=== PATIENT | female | born 1945 | race Caucasian/White ===

== ENCOUNTER 2017-10-16 02:03 | Inpatient (IN) | payer MEDICARE, OTHER ==
[~2017-10-16] VITALS: Ht 162.6 cm; Wt 76.7 kg
[2017-10-16] VITALS (7 sets, daily range): BP systolic 88–127; BP diastolic 52–61
[~2017-10-16 02:03] MED LIST: AMLO5TAB2 PO; APIX5TAB PO; ASPI-630 PO; ATOR40TA59 PO; BUDE0.5A3 IH; BYSTOLIC20 MG PO; CARV12.52 PO; DULO60CA6 PO; FOLI1TAB16 PO; FURO-68 PO; IPRA0.2S5 NEB; ISOS30TA4 PO; LAMO100T PO; LOSA50TA6 PO; MULT1TAB52 PO; OMEP40CA5 PO; POTA20LI27 PO; POTA20TA82 PO; RIVA20TA2 PO
[2017-10-16] MEDS ORDERED: MAGNESIUM SULFATE 2GM 50 ML IV ONE (02:30)
[2017-10-16] MEDS ORDERED: methylPREDNISolone SOD SUCC PF 125 MG/2 ML VIAL. IV ONE (02:30)
[2017-10-16] MEDS ORDERED: IV NORMAL SALINE 1000ML BAG 1,000 ML IV SCH (02:30)
[2017-10-16] MEDS ORDERED: IPRATROPIUM BROMIDE 0.5 MG/2.5 ML NEBU. NEB ONE (02:30)
[2017-10-16] MEDS ORDERED: ALBUTEROL SULFATE 2.5 MG/3 ML NEBU. CONT NEB ONE (02:30)
[2017-10-16] MEDS ORDERED: MORPHINE SULFATE 2 MG/ML VIAL. IV ONE (02:30)
[2017-10-16 02:33] LABS: BASO # 0.1 x10^3/uL (0.0-0.2); BASO % 1 % (0-3); EOS # 0.3 x10^3/uL (0.0-0.7); EOS % 2 % (0-3); HEMATOCRIT 29.6 % (36.0-47.0); HEMOGLOBIN 9.8 g/dL (12.0-15.5); LYMPH # 3.4 x10^3/uL (1.0-4.8); LYMPH % 23 % (24-48); MEAN CORPUSCULAR HEMOGLOBIN 33 pg (25-35); MEAN CORPUSCULAR HGB CONC 33 g/dL (31-37); MEAN CORPUSCULAR VOLUME 101 fL (79-100); MONO # 0.9 x10^3/uL (0.0-1.1); MONO % 6 % (0-9); NEUT # 10.1 x10^3uL (1.8-7.7); NEUT % 68 % (31-73); PLATELET COUNT 511 x10^3/uL (140-400); RED BLOOD COUNT 2.95 x10^6/uL (3.50-5.40); RED CELL DISTRIBUTION WIDTH 14.4 % (11.5-14.5); WHITE BLOOD COUNT 14.9 x10^3/uL (4.0-11.0)
[2017-10-16] MEDS ORDERED: ONDANSETRON PF 4 MG/2 ML VIAL. IV ONE ×2 (02:45→04:30)
[2017-10-16 02:46] LABS: CALCIUM 9.5 mg/dL (8.5-10.1); CREATININE 1.5 mg/dL (0.6-1.0); GFR 34.3; POTASSIUM 4.9 mmol/L (3.5-5.1)
[2017-10-16 02:52] LABS: ALBUMIN 3.2 g/dL (3.4-5.0); ALBUMIN/GLOBULIN RATIO 0.6 (1.0-1.7); MAGNESIUM 2.4 mg/dL (1.8-2.4); TOTAL BILIRUBIN 0.3 mg/dL (0.2-1.0); TOTAL PROTEIN 8.2 g/dL (6.4-8.2)
[2017-10-16 02:54] LABS: BASE EXCESS ABG 1 mmol/L (-3-3); HCO3 ABG 29 mmol/L (21-28); PO2 ABG 74 mmHg (65-108); SAT O2 ABG 92 % (92-99)
[2017-10-16] MEDS ORDERED: FUROSEMIDE 40 MG/4 ML VIAL. IVP ONE (03:30)
[2017-10-16 03:31] LABS: PCO2 ABG 63 mmHg (35-46)
--- NOTE | 2017-10-16 03:51 | RAD ---
PORTABLE CHEST 1V Clinical Indication: DYSPNEA Comparison: Two-view chest October 13, 2017. Findings: Atherosclerotic thoracic aorta. Stable cardiomegaly. Diffuse interstitial prominence has increased. A component is likely chronic. Small right pleural effusion. Left pleural effusion is improved. There are bibasilar airspace opacities, interval worsening in the right lung base There is no pneumothorax. There are surgical clips in the neck bilaterally. IMPRESSION: 1. Diffuse interstitial prominence is increased from prior study suggesting worsening interstitial edema. Suspect a component of the interstitial opacities is chronic. 2. There is increased right basilar airspace disease. 3. Small right pleural effusion. Left pleural effusion is improved. Electronically signed by: Haseeb Burt MD (10/16/2017 3:48 AM) [facility]
--- NOTE | 2017-10-16 04:38 | PHYS DOC ---
Past Medical History Past Medical History: A-Fib, COPD, Depression, High Cholesterol, Hypertension, Seizure, Stroke Past Surgical History: Other Additional Past Surgical Histo: carotid endarterectomy Alcohol Use: None Drug Use: None Adult General Chief Complaint Chief Complaint: CHEST PAIN HPI HPI Patient is a 72-year-old female who presents via EMS with reports of increasing restlessness throughout the night. Patient is a correction patient and reportedly had been having complain of chest discomfort earlier this evening. Patient has an expressive aphasia due to previous stroke and therefore history is limited. Patient is in obvious respiratory distress upon arrival to the emergency room with oxygen saturations in the low 80s on 6 L by nasal cannula. Review of Systems Review of Systems Constitutional: No reported fever[] Respiratory: Positive shortness of breath[] Cardiovascular: Reported chest pain earlier[] For review of systems is limited due to severity of patient's condition and inability to provide history. Current Medications Current Medications Current Medications Medications (Trade) Dose Ordered Sig/Alicia Start Time Stop Time Status Last Admin Dose Admin Albuterol Sulfate (Ventolin Neb Soln) 10 mg 1X ONCE 10/16/17 02:30 10/16/17 02:31 DC 10/16/17 02:54 10 MG Furosemide (Lasix) 60 mg 1X ONCE 10/16/17 03:30 10/16/17 03:31 DC Ipratropium [place] (Atrovent) 0.5 mg 1X ONCE 10/16/17 02:30 10/16/17 02:31 DC 10/16/17 02:55 0.5 MG Levofloxacin/ Dextrose 150 ml @ 100 mls/hr 1X ONCE 10/16/17 04:00 10/16/17 05:29 10/16/17 04:13 100 MLS/HR Lorazepam (Ativan) 1 mg 1X ONCE 10/16/17 04:00 10/16/17 04:01 DC 10/16/17 04:03 1 MG Magnesium Sulfate 50 ml @ 25 mls/hr 1X ONCE 10/16/17 02:30 10/16/17 04:29 10/16/17 02:30 25 MLS/HR Methylprednisolone Sodium Succinate (SOLU-Medrol 125MG VIAL) 125 mg 1X ONCE 10/16/17 02:30 10/16/17 02:31 DC 10/16/17 02:30 125 MG Morphine Sulfate (Morphine Sulfate) 2 mg 1X ONCE 10/16/17 02:30 10/16/17 03:02 DC 10/16/17 02:33 2 MG Ondansetron HCl (Zofran) 4 mg 1X ONCE 10/16/17 04:15 10/16/17 04:16 UNV Sodium Chloride 1,000 ml @ 100 mls/hr Q10H 10/16/17 02:30 10/16/17 12:29 Allergies Allergies Allergies Coded Allergies Type Severity Reaction Last Updated Verified Penicillins Allergy Intermediate 10/03/17 Yes Physical Exam Physical Exam Constitutional: Patient in moderate respiratory distress. [] HENT: Normocephalic, atraumatic, bilateral external ears normal, oropharynx dry , no oral exudates, nose normal. [] Eyes: PERRLA, conjunctiva normal, no discharge. [] Neck: Normal range of motion, no tenderness, supple, no stridor. [] Cardiovascular: Mildly tachycardic rate with regular rhythm[] Lungs & Thorax: Markedly diminished breath sounds are noted bilaterally with faint end expiratory wheezes on exam. Accessory muscle usage is noted[] Abdomen: Bowel sounds normal, soft, no tenderness. [] Skin: Warm, dry, no erythema, no rash. [] Extremities: Lower extremity edema is noted. [] Neurologic: Awake and alert. Unable to fully assess neurological status due to severity patient condition. [] Current Patient Data Vital Signs Vital Signs Date Time Temp Pulse Resp B/P (MAP) Pulse Ox O2 Delivery O2 Flow Rate FiO2 10/16/17 04:09 92 BiPAP/CPAP 10/16/17 02:33 34 10/16/17 02:13 98.0 108 156/59 (91) 4.0 98.0 Lab Values Laboratory Tests Test 10/16/17 02:15 10/16/17 02:30 10/16/17 02:52 White Blood Count 14.9 x10^3/uL (4.0-11.0) H Red Blood Count 2.95 x10^6/uL (3.50-5.40) L Hemoglobin 9.8 g/dL (12.0-15.5) L Hematocrit 29.6 % (36.0-47.0) L Mean Corpuscular Volume 101 fL (79-100) H Mean Corpuscular Hemoglobin 33 pg (25-35) Mean Corpuscular Hemoglobin Concent 33 g/dL (31-37) Red Cell Distribution Width 14.4 % (11.5-14.5) Platelet Count 511 x10^3/uL (140-400) H Neutrophils (%) (Auto) 68 % (31-73) Lymphocytes (%) (Auto) 23 % (24-48) L Monocytes (%) (Auto) 6 % (0-9) Eosinophils (%) (Auto) 2 % (0-3) Basophils (%) (Auto) 1 % (0-3) Neutrophils # (Auto) 10.1 x10^3uL (1.8-7.7) H Lymphocytes # (Auto) 3.4 x10^3/uL (1.0-4.8) Monocytes # (Auto) 0.9 x10^3/uL (0.0-1.1) Eosinophils # (Auto) 0.3 x10^3/uL (0.0-0.7) Basophils # (Auto) 0.1 x10^3/uL (0.0-0.2) Sodium Level 134 mmol/L (136-145) L Potassium Level 4.9 mmol/L (3.5-5.1) Chloride Level 99 mmol/L (98-107) Carbon Dioxide Level 29 mmol/L (21-32) Anion Gap 6 (6-14) Blood Urea Nitrogen 24 mg/dL (7-20) H Creatinine 1.5 mg/dL (0.6-1.0) H Estimated GFR (Cockcroft-Gault) 34.3 BUN/Creatinine Ratio 16 (6-20) Glucose Level 154 mg/dL (70-99) H Calcium Level 9.5 mg/dL (8.5-10.1) Magnesium Level 2.4 mg/dL (1.8-2.4) Total Bilirubin 0.3 mg/dL (0.2-1.0) Aspartate Amino Transferase (AST) 19 U/L (15-37) Alanine Aminotransferase (ALT) 29 U/L (14-59) Alkaline Phosphatase 137 U/L (46-116) H Troponin I Quantitative 0.299 ng/mL (0.000-0.055) WZ-Bab-P-Type Natriuretic Peptide 31707 pg/mL (0-124) H Total Protein 8.2 g/dL (6.4-8.2) Albumin 3.2 g/dL (3.4-5.0) L Albumin/Globulin Ratio 0.6 (1.0-1.7) L Lactic Acid Level 1.7 mmol/L (0.4-2.0) O2 Saturation 92 % (92-99) Arterial Blood pH 7.28 (7.35-7.45) L Arterial Blood pCO2 at Patient Temp 63 mmHg (35-46) *H Arterial Blood pO2 at Patient Temp 74 mmHg (65-108) Arterial Blood HCO3 29 mmol/L (21-28) H Arterial Blood Base Excess 1 mmol/L (-3-3) FiO2 100.0 Laboratory Tests 10/16/17 02:15 Laboratory Tests 10/16/17 02:15 EKG EKG [] Interpretation Time: EKG demonstrates sinus tachycardia with rate of 106. There is a left bundle branch block Radiology/Procedures Radiology/Procedures [] Impressions: Chest x-ray demonstrates fluid overload and likely infiltrate right lower lobe Course & Med Decision Making Course & Med Decision Making Pertinent Labs and Imaging studies reviewed. (See chart for details) After evaluation patient, IV was established and blood work was drawn. Patient changed from nasal cannula to O2 mask with little improvement. Patient then placed on BiPAP. Patient given 1 hour continuous nebulizer treatment as well as 2 g of mag sulfate. On BiPAP, patient's O2 sats noted to rise into the mid 90s. Patient has been given numerous doses of medication to include lorazepam and morphine to help tolerate BiPAP. Patient's case discussed with her daughter and patient is a DNR. Dragon Disclaimer Dragon Disclaimer This electronic medical record was generated, in whole or in part, using a voice recognition dictation system. Departure Departure Impression: Primary Impression: Acute hypoxemic respiratory failure Additional Impressions: COPD with acute exacerbation Pneumonia CHF (congestive heart failure) Disposition: 09 ADMITTED INPATIENT Admitting Physician: Xie. Mendoza Condition: GUARDED Referrals: MILAGROS HAMEED MD (PCP) Problem Qualifiers Additional Impressions: Pneumonia Pneumonia type: due to unspecified organism Laterality: unspecified laterality Lung location: unspecified part of lung Qualified Codes: J18.9 - Pneumonia, unspecified organism CHF (congestive heart failure) Heart failure type: unspecified Heart failure chronicity: unspecified Qualified Codes: I50.9 - Heart failure, unspecified REBECCA MIXON Jr. DO Oct 16, 2017 04:37
[2017-10-16] MEDS ORDERED: MORPHINE SULFATE 2 MG/ML VIAL. IV PRN (05:15)
[2017-10-16] MEDS ORDERED: ONDANSETRON PF 4 MG/2 ML VIAL. IV PRN ×2 (05:15→10:00)
[2017-10-16] MEDS ORDERED: IV NORMAL SALINE 250ML 250 ML IV ONE (05:30)
--- NOTE | 2017-10-16 07:29 | PDOC ---
CARDIOLOGY PROGRESS NOTE SUBJECTIVE: Please see previous notes from 10/12 for full details: Briefly, 72 y.o woman with multiple medical problems recently discharged after PCI of the LCx and RCA. She has severe diffuse disease of the LAD not easily amenable to PCI. She was at the rehab facility and doing ok during the day but apparently was restless at night. Last night she had severe dyspnea with hypoxia upon arrival to ER. Started on bipap and felt better. This morning she denies any chest pain and breathing is better on Bipap. OBJECTIVE: Vital SIgns: Vital Signs Date Time Temp Pulse Resp B/P (MAP) Pulse Ox O2 Delivery O2 Flow Rate FiO2 10/16/17 07:13 64 98/53 (68) 100 BiPAP/CPAP 10/16/17 06:22 24 10/16/17 06:13 98.0 98.0 10/16/17 02:13 4.0 I & O Intake and Output 10/16/17 07:00 Output Total 50 ml Balance -50 ml Output Urine Total 50 ml Objective: Gen: Resting comfortably on bipap CVS: RRR, no m/r/g PULM: Bilateral rhonchi. ABD: Soft, NT/ND +BS EXT: No edema. Neck veins difficult to visualize due to bilateral carotid incisions, which are stable. CURRENT MEDICATIONS: lasix given x 1. DIAGNOSTIC TESTING: Trop minimally elevated, down trending from prior EKG - SR with LBBB CXR: Bilateral interstitial infiltrates. ASSESSMENT: 1. NSTEMI: S/P PCI/stents to LCx and RCA since she was deemed a poor candidate for CABG. CP free. 2. PAFIB with known LBBB: maintaining SR with LBBB 3. Past CVA with expressive aphasia: CTA done to evaluate carotids demonstrates probable old large left MCA territory infarct 4. HLP 5. HTN: controlled 6. Bilateral carotid artery disease: L CEA done 09/28/2017 and R CEA 10/03/2017 7. Acute on chronic systolic heart failure: still has CHF per CXR with pleural effusion, remains HART requiring O2. 8. BRINA: Cr up to 1.6, likely prerenal PLAN: 1. Continue diuresis as tolerated. Hold BP meds due to hypotension, use NTG gtt prn until BiPAP removed and then can reassess med needs. 2. Monitor renal function and may need ionotropic support if no improvement 3. Will discuss with Dr. Najera regarding PCI of the LM/LAD (Due to large anterior wall infarct, it may not necessarily improve her symptoms) LILIA WHARTON MD Oct 16, 2017 07:29
[2017-10-16] MEDS: IPRATRPIUM/ALBUTEROL 0.5/2.5MG 3 ML NEBU. NEB SCH ×2 (07:57→11:50)
[2017-10-16 08:59] LABS: BASE EXCESS ABG 1 mmol/L (-3-3); HCO3 ABG 23 mmol/L (21-28); PCO2 ABG 25 mmHg (35-46); PO2 ABG 77 mmHg (65-108); SAT O2 ABG 97 % (92-99)
[2017-10-16 09:04] LABS: FIO2 ABG 40
[2017-10-16] MEDS ORDERED: DOCUSATE SODIUM 100 MG CAPSULE. PO PRN (10:00)
[2017-10-16] MEDS ORDERED: ACETAMINOPHEN 325 MG TABLET. PO PRN (10:00)
[2017-10-16] MEDS ORDERED: ALBUTEROL SULFATE 2.5 MG/3 ML NEBU. NEB PRN (10:00)
[2017-10-16] MEDS ORDERED: traMADol 50 MG TABLET PO PRN (10:00)
[2017-10-16] MEDS ORDERED: FUROSEMIDE 40 MG TABLET. PO SCH (10:00)
[2017-10-16] MEDS ORDERED: lamoTRIgine 100 MG TABLET. PO SCH (10:15)
[2017-10-16] MEDS: POTASSIUM CHLORIDE 20 MEQ TABLET.ER. PO SCH (10:48)
[2017-10-16] MEDS: PANTOPRAZOLE 40 MG TABLET.DR. PO SCH (10:48)
--- NOTE | 2017-10-16 11:14 | EKG ---
[facility] [address] [place] [address] Test Date: 2017-10-16 Test Time: 02:06:23 Pat Name: MARCIA JOYCE Department: Room: 256 1 Gender: F Adult Education Manager: : [id number] Requested By: REBECCA MIXON Order Number: [id number] Reading MD: Mk Frias MD Measurements Intervals [place] Rate: 106 P: 128 DC: 156 QRS: -4 QRSD: 158 T: 150 QT: 366 QTc: 488 Interpretive Statements SINUS TACHYCARDIA LBBB Electronically Signed On 10-17-2017 10:46:15 CDT by Mk Frias MD
--- NOTE | 2017-10-16 11:20 | CONS ---
DATE OF CONSULTATION: ATTENDING PHYSICIAN: Dr. Potter. REASON FOR CONSULTATION: Pulmonary edema, hypoxic respiratory failure. HISTORY OF PRESENT ILLNESS: The patient is a 72-year-old female who is known to us from a recent admission for congestive heart failure. The patient was discharged after making clinical improvement to skilled care facility. She was brought into the hospital with increasing dyspnea and hypoxic respiratory failure, requiring BiPAP. She has a history of diffuse coronary artery disease. She underwent PCI of left circumflex and RCA. LAD was not stented as due to large anterior wall infarct. The patient's chest x-ray was consistent with diffuse interstitial edema, which was worsened compared to before. ABG showed a pH of 7.28, pCO2 of 63 and a pO2 of 74 on 100% oxygen. Since diuresis and BiPAP, she is better with pH of 7.57, pCO2 of 25 and a pO2 77 on 40% FiO2. The patient is currently on 3 liters of oxygen and off the BiPAP. PAST MEDICAL HISTORY: Significant for history of 3-vessel [place] coronary artery disease status post stenting of left circumflex and RCA recently. LAD was still blocked. History of prior CVA with expressive aphasia. History of COPD. PAST SURGICAL HISTORY: Multiple cardiac catheterizations and stents. She also had carotid endarterectomy during recent month. ALLERGIES: PENICILLIN. MEDICATIONS: All reviewed, as listed in the MRAD. REVIEW OF SYSTEMS: Twelve-point system obtained. Pertinent positives discussed in my history of present illness, otherwise noncontributory. All systems that were negative were reviewed as well. She has no cough, no fever, no chills, no chest pains. No leg edema, no focal weakness. No dysuria. No nausea or vomiting, no diarrhea. SOCIAL HISTORY: Smoked for about 30 years before quitting 8 years ago. PHYSICAL EXAMINATION: VITAL SIGNS: Reviewed. Blood pressure is now 98/53, afebrile, pulse ox 100% off the BiPAP, on 3 liters. HEENT: Sclerae nonicteric. NECK: Supple. LUNGS: With few crackles at the bases. CARDIOVASCULAR: Regular rate. ABDOMEN: Soft, nontender. EXTREMITIES: Trace pitting edema. LABORATORY DATA: Reviewed. ABGs are discussed in my history of present illness. BUN 34, creatinine 1.5. Her troponin 0.268 and proBNP 12,000. White cell count 14.9, hemoglobin 9.8. IMPRESSION: 1. Pggfo-[id number] hypoxic and hypercapnic respiratory failure secondary to [id number] systolic heart failure and multivessel coronary artery disease. 2. The patient with [place] 3-vessel coronary artery disease status post recent left circumflex and right coronary artery stenting. She also had a large anterior infarct and as a result, left anterior descending artery was not stented. 3. Underlying chronic obstructive pulmonary disease. 4. Abnormal chest x-ray with diffuse interstitial infiltrates, consistent with worsening pulmonary edema. RECOMMENDATIONS: 1. Continue to keep her off the BiPAP since clinically she has improved with Lasix. Her blood pressure is stable. Discontinue IV fluids. 2. Follow chest x-ray. 3. Follow Cardiology's recommendations. 4. Continue bronchodilators. 5. Antibiotic can be discontinued from a pulmonary standpoint. 6. Discussed with the patient's family. Discussed with Dr. Frias. SALVADOR TRINIDAD MD DR: UMESH/mirna JOB#: [id number] / [id number]
[2017-10-16] MEDS ORDERED: ASPI-630 PO (11:21)
[2017-10-16] MEDS ORDERED: IPRATRPIUM/ALBUTEROL 0.5/2.5MG 3 ML NEBU. NEB SCH (12:00)
--- NOTE | 2017-10-16 13:29 | PDOC1 ---
History and Physical Date of Admission Date of Admission 10/16/17 Identification/Chief Complaint Chief Complaint sob Source Source: Caregiver, Chart review, Patient History of Present Illness History of Present Illness Ms. Peters is a 72 old F, with h/o stroke with expressive aphagia, was dced last week for NSTEMI FOR WHICH SHE GOT got 2 stents and LAD still has leasions waiting for staged PCI. CABG CANCled. she was then found bl carotid A stenosis, got endarterectomy. pt later developed pulmonary edema, lasix iv added. SHE Was dced to rehab with eliquis , plavix, lasix 40mg daily. Pt started to feel night sob after dc, daytime ok, cannot sleep flat, has brown sputum , has NC on in rehab, sent back to ER ABG showed hypercapnic resp failure with worsening CXR. lasix given? pt feels better today on NC 2L. Past Medical History Cardiovascular: AFIB, CAD, HTN, Hyperlipidemia Pulmonary: COPD CENTRAL NERVOUS SYSTEM: CVA, Seizure GI: No pertinent hx Heme/Onc: No pertinent hx Hepatobiliary: No pertinent hx Psych: No pertinent hx Rheumatologic: No pertinent hx Infectious disease: No pertinent hx Renal/: No pertinent hx Endocrine: No pertinent hx Past Surgical History Past Surgical History endaterectomy Past Surgical History: No pertinent history Family History Family History: Coronary Artery Disease Social History Smoke: No ALCOHOL: none Drugs: None Current Problem List Problem List Problems Medical Problems: (1) Acute hypoxemic respiratory failure Status: Acute (2) CHF (congestive heart failure) Status: Acute (3) COPD with acute exacerbation Status: Acute (4) Pneumonia Status: Acute Current Medications Current Medications Current Medications Medications (Trade) Dose Ordered Sig/Alicia Start Time Stop Time Status Last Admin Dose Admin Acetaminophen (Tylenol) 650 mg PRN Q6HRS PRN 10/16/17 10:00 Albuterol Sulfate (Ventolin Neb Soln) 2.5 mg PRN Q2HR PRN 10/16/17 10:00 Albuterol/ Ipratropium (Duoneb) 3 ml RTQID 10/16/17 12:00 UNV Atorvastatin Calcium (Lipitor) 40 mg HS 10/16/17 21:00 Budesonide (Pulmicort) 0.5 mg BID 10/16/17 21:00 Docusate Sodium (Colace) 100 mg PRN DAILY PRN 10/16/17 10:00 10/16/17 13:14 100 MG Folic Acid (Folic Acid) 1 mg HS 10/16/17 21:00 Furosemide (Lasix) 40 mg DAILY 10/16/17 10:00 10/16/17 10:48 40 MG Guaifenesin (Mucinex) 600 mg BID 10/16/17 11:00 10/16/17 10:48 600 MG Ipratropium [place] (Atrovent) 0.5 mg 1X ONCE 10/16/17 02:30 10/16/17 02:31 DC 10/16/17 02:55 0.5 MG Lamotrigine (LaMICtal) 500 mg DAILY 10/16/17 10:15 10/16/17 10:49 500 MG Levofloxacin/ Dextrose 150 ml @ 100 mls/hr QODAY 10/18/17 09:00 Lorazepam (Ativan) 1 mg 1X ONCE 10/16/17 04:00 10/16/17 04:01 DC 10/16/17 04:03 1 MG Magnesium Sulfate 50 ml @ 25 mls/hr 1X ONCE 10/16/17 02:30 10/16/17 04:29 DC 10/16/17 02:30 25 MLS/HR Methylprednisolone Sodium Succinate (SOLU-Medrol 125MG VIAL) 125 mg 1X ONCE 10/16/17 02:30 10/16/17 02:31 DC 10/16/17 02:30 125 MG Morphine Sulfate (Morphine Sulfate) 2 mg PRN Q2HR PRN 10/16/17 10:00 Multivitamins (Thera M Plus) 1 tab DAILY 10/17/17 09:00 Ondansetron HCl (Zofran) 4 mg PRN Q6HRS PRN 10/16/17 10:00 Pantoprazole Sodium (Protonix) 40 mg DAILYAC 10/16/17 10:00 10/16/17 10:48 40 MG Potassium Chloride (Klor-Con) 20 meq [id number] 10/16/17 10:00 10/16/17 10:48 20 MEQ Sodium Chloride 250 ml @ 250 mls/hr 1X ONCE 10/16/17 05:30 10/16/17 06:29 DC 10/16/17 05:32 250 MLS/HR Tramadol HCl (Ultram) 50 mg PRN Q6HRS PRN 10/16/17 10:00 Allergies Allergies Allergies Coded Allergies Type Severity Reaction Last Updated Verified Penicillins Allergy Intermediate 10/03/17 Yes ROS Review of System CONSTITUTIONAL: No fever or chills EYES: No recent changes SKIN: No rash or itching CARDIOVASCULAR: No chest pain, syncope, palpitations, or edema RESPIRATORY: No SOB or cough GASTROINTESTINAL: No nausea, vomiting or abdominal pain NEUROLOGICAL: No headaches or weakness ENDOCRINE: No cold or heat intolerance GENITOURINARY: No urgency or frequency of urination MUSCULOSKELETAL: No back pain or joint pain LYMPHATICS: No enlarged lymph nodes PSYCHIATRIC: No anxiety or depression Physical Exam Physical Exam GEN.: No apparent distress. Alert and oriented. HEENT: Head is normocephalic, atraumatic NECK: Supple. LUNGS: bl coarse bs with basilar moderate rales. HEART: RRR, S1, S2 present. Peripheral pulses intact ABDOMEN: Soft, nontender. Positive bowel sounds. EXTREMITIES: Without any cyanosis. bl leg trace edema. NEUROLOGIC: Normal speech, normal tone PSYCHIATRIC: Normal affect, normal mood. SKIN: No ulcerations Vitals Vitals Vital Signs Date Time Temp Pulse Resp B/P (MAP) Pulse Ox O2 Delivery O2 Flow Rate FiO2 10/16/17 13:15 24 96 3.0 10/16/17 11:52 Nasal Cannula 10/16/17 10:27 98.2 82 105/52 (69) 98.2 Labs Labs Laboratory Tests Test 10/16/17 02:15 10/16/17 02:30 10/16/17 02:52 10/16/17 07:55 White Blood Count 14.9 x10^3/uL (4.0-11.0) Red Blood Count 2.95 x10^6/uL (3.50-5.40) Hemoglobin 9.8 g/dL (12.0-15.5) Hematocrit 29.6 % (36.0-47.0) Mean Corpuscular Volume 101 fL (79-100) Mean Corpuscular Hemoglobin 33 pg (25-35) Mean Corpuscular Hemoglobin Concent 33 g/dL (31-37) Red Cell Distribution Width 14.4 % (11.5-14.5) Platelet Count 511 x10^3/uL (140-400) Neutrophils (%) (Auto) 68 % (31-73) Lymphocytes (%) (Auto) 23 % (24-48) Monocytes (%) (Auto) 6 % (0-9) Eosinophils (%) (Auto) 2 % (0-3) Basophils (%) (Auto) 1 % (0-3) Neutrophils # (Auto) 10.1 x10^3uL (1.8-7.7) Lymphocytes # (Auto) 3.4 x10^3/uL (1.0-4.8) Monocytes # (Auto) 0.9 x10^3/uL (0.0-1.1) Eosinophils # (Auto) 0.3 x10^3/uL (0.0-0.7) Basophils # (Auto) 0.1 x10^3/uL (0.0-0.2) Sodium Level 134 mmol/L (136-145) Potassium Level 4.9 mmol/L (3.5-5.1) Chloride Level 99 mmol/L (98-107) Carbon Dioxide Level 29 mmol/L (21-32) Anion Gap 6 (6-14) Blood Urea Nitrogen 24 mg/dL (7-20) Creatinine 1.5 mg/dL (0.6-1.0) Estimated GFR (Cockcroft-Gault) 34.3 BUN/Creatinine Ratio 16 (6-20) Glucose Level 154 mg/dL (70-99) Calcium Level 9.5 mg/dL (8.5-10.1) Magnesium Level 2.4 mg/dL (1.8-2.4) Total Bilirubin 0.3 mg/dL (0.2-1.0) Aspartate Amino Transf (AST/SGOT) 19 U/L (15-37) Alanine Aminotransferase (ALT/SGPT) 29 U/L (14-59) Alkaline Phosphatase 137 U/L (46-116) Troponin I Quantitative 0.299 ng/mL (0.000-0.055) 0.268 ng/mL (0.000-0.055) LN-Ryx-Q-Type Natriuretic Peptide 62309 pg/mL (0-124) Total Protein 8.2 g/dL (6.4-8.2) Albumin 3.2 g/dL (3.4-5.0) Albumin/Globulin Ratio 0.6 (1.0-1.7) Lactic Acid Level 1.7 mmol/L (0.4-2.0) 0.8 mmol/L (0.4-2.0) O2 Saturation 92 % (92-99) Arterial Blood pH 7.28 (7.35-7.45) Arterial Blood pCO2 at Patient Temp 63 mmHg (35-46) Arterial Blood pO2 at Patient Temp 74 mmHg (65-108) Arterial Blood HCO3 29 mmol/L (21-28) Arterial Blood Base Excess 1 mmol/L (-3-3) FiO2 100.0 Test 10/16/17 08:50 O2 Saturation 97 % (92-99) Arterial Blood pH 7.57 (7.35-7.45) Arterial Blood pCO2 at Patient Temp 25 mmHg (35-46) Arterial Blood pO2 at Patient Temp 77 mmHg (65-108) Arterial Blood HCO3 23 mmol/L (21-28) Arterial Blood Base Excess 1 mmol/L (-3-3) FiO2 40 Laboratory Tests Test 10/16/17 02:15 10/16/17 02:30 10/16/17 02:52 10/16/17 07:55 White Blood Count 14.9 x10^3/uL (4.0-11.0) Red Blood Count 2.95 x10^6/uL (3.50-5.40) Hemoglobin 9.8 g/dL (12.0-15.5) Hematocrit 29.6 % (36.0-47.0) Mean Corpuscular Volume 101 fL (79-100) Mean Corpuscular Hemoglobin 33 pg (25-35) Mean Corpuscular Hemoglobin Concent 33 g/dL (31-37) Red Cell Distribution Width 14.4 % (11.5-14.5) Platelet Count 511 x10^3/uL (140-400) Neutrophils (%) (Auto) 68 % (31-73) Lymphocytes (%) (Auto) 23 % (24-48) Monocytes (%) (Auto) 6 % (0-9) Eosinophils (%) (Auto) 2 % (0-3) Basophils (%) (Auto) 1 % (0-3) Neutrophils # (Auto) 10.1 x10^3uL (1.8-7.7) Lymphocytes # (Auto) 3.4 x10^3/uL (1.0-4.8) Monocytes # (Auto) 0.9 x10^3/uL (0.0-1.1) Eosinophils # (Auto) 0.3 x10^3/uL (0.0-0.7) Basophils # (Auto) 0.1 x10^3/uL (0.0-0.2) Sodium Level 134 mmol/L (136-145) Potassium Level 4.9 mmol/L (3.5-5.1) Chloride Level 99 mmol/L (98-107) Carbon Dioxide Level 29 mmol/L (21-32) Anion Gap 6 (6-14) Blood Urea Nitrogen 24 mg/dL (7-20) Creatinine 1.5 mg/dL (0.6-1.0) Estimated GFR (Cockcroft-Gault) 34.3 BUN/Creatinine Ratio 16 (6-20) Glucose Level 154 mg/dL (70-99) Calcium Level 9.5 mg/dL (8.5-10.1) Magnesium Level 2.4 mg/dL (1.8-2.4) Total Bilirubin 0.3 mg/dL (0.2-1.0) Aspartate Amino Transf (AST/SGOT) 19 U/L (15-37) Alanine Aminotransferase (ALT/SGPT) 29 U/L (14-59) Alkaline Phosphatase 137 U/L (46-116) Troponin I Quantitative 0.299 ng/mL (0.000-0.055) 0.268 ng/mL (0.000-0.055) YU-Ifr-R-Type Natriuretic Peptide 61235 pg/mL (0-124) Total Protein 8.2 g/dL (6.4-8.2) Albumin 3.2 g/dL (3.4-5.0) Albumin/Globulin Ratio 0.6 (1.0-1.7) Lactic Acid Level 1.7 mmol/L (0.4-2.0) 0.8 mmol/L (0.4-2.0) O2 Saturation 92 % (92-99) Arterial Blood pH 7.28 (7.35-7.45) Arterial Blood pCO2 at Patient Temp 63 mmHg (35-46) Arterial Blood pO2 at Patient Temp 74 mmHg (65-108) Arterial Blood HCO3 29 mmol/L (21-28) Arterial Blood Base Excess 1 mmol/L (-3-3) FiO2 100.0 Test 10/16/17 08:50 O2 Saturation 97 % (92-99) Arterial Blood pH 7.57 (7.35-7.45) Arterial Blood pCO2 at Patient Temp 25 mmHg (35-46) Arterial Blood pO2 at Patient Temp 77 mmHg (65-108) Arterial Blood HCO3 23 mmol/L (21-28) Arterial Blood Base Excess 1 mmol/L (-3-3) FiO2 40 VTE Prophylaxis Ordered VTE Prophylaxis Devices: Yes VTE Pharmacological Prophylaxi: No Assessment/Plan Assessment/Plan acute resp failure with pulmonary edemam, bl pleural effusion acute on chronic hypoxic and hypercapnic resp failure recent NSTMEI status post C 09/23 to the right wrist, 3 vessel disease, s/p 2 stents at RCA AND LCx, PLAn staged PCI for LAD PAFIB with known LBBB, on xarelto Past CVA with expressive aphasia HLP COPD HTN: bl carotid A stenosis, Left >70%, BL endarterectomy plan: fu with pulsamina, card hold Home HTN meds, pt not really got most of them last admission hold misael west suggested to dc by pulm lasix x1 in ER, dc ivf, add lasix 40mg iv daily from tmr taper off Bipap, NC as needed talked to family, card. PTOT BRYANT JURADO MD Oct 16, 2017 13:29
--- NOTE | 2017-10-16 15:06 | RAD ---
EXAM: Abdomen, single view. HISTORY: Pain COMPARISON: None. FINDINGS: A frontal view of the abdomen is obtained. There aren't distended air-filled loops of bowel throughout the abdomen. There is a small amount of stool within the proximal colon. There are small bilateral pleural effusions. There is left lower lobe infiltrate superimposed on diffuse increased interstitial opacity due to infiltrate or chronic interstitial lung disease. There are healed rib fractures. IMPRESSION: Distended air-filled bowel throughout the abdomen. The differential includes ileus and distal obstruction. Electronically signed by: Natalie Herrera MD (10/16/2017 3:03 PM) [facility]
[2017-10-16] MEDS: IPRATROPIUM BROMIDE 0.5 MG/2.5 ML NEBU. NEB SCH ×2 (16:02→19:35)
[2017-10-16] MEDS ORDERED: BUDESONIDE 0.5 MG/2 ML NEBU. NEB SCH (21:00)
[2017-10-16] MEDS ORDERED: ATORVASTATIN CALCIUM 40 MG TABLET. PO SCH (21:00)
[2017-10-16] MEDS ORDERED: FOLIC ACID 1 MG TABLET. PO SCH (21:00)
[2017-10-17 03:09] VITALS: BP 97/52
[2017-10-17] MEDS: MORPHINE SULFATE 2 MG/ML VIAL. IV PRN ×2 (05:38→06:30)
[2017-10-17] MEDS ORDERED: MORPHINE SULFATE 2 MG/ML VIAL. IV ONE (06:30)
[2017-10-17] MEDS: PANTOPRAZOLE 40 MG TABLET.DR. PO SCH (07:30)
--- NOTE | 2017-10-17 07:39 | RAD ---
Abdominal ultrasound, 10/16/2017: HISTORY: Abdominal pain The exam was limited by the patient's inability to fully cooperate. The gallbladder was only partially visualized. No gallstones or gallbladder wall thickening is evident. There is no evidence of a hepatic mass or bile duct dilatation. The pancreas and central retroperitoneum including the aorta and inferior vena cava were largely obscured by overlying bowel. The spleen is poorly visualized but is not enlarged. Limited views of both kidneys show no abnormality. No free fluid is evident in the abdomen. IMPRESSION: Limited exam demonstrating no acute abnormality. Electronically signed by: Fernando Poe MD (10/17/2017 7:35 AM) [facility]
[2017-10-17] MEDS: POTASSIUM CHLORIDE 20 MEQ TABLET.ER. PO SCH (08:00)
[2017-10-17] MEDS: IPRATROPIUM BROMIDE 0.5 MG/2.5 ML NEBU. NEB SCH (08:00)
[2017-10-17] MEDS ORDERED: FUROSEMIDE 40 MG/4 ML VIAL. IVP SCH (09:00)
[2017-10-17] MEDS ORDERED: MULTIVITAMIN with MINERAL TABLET. PO SCH (09:00)
--- NOTE | 2017-10-17 09:08 | PDOC ---
PULMONARY PROGRESS NOTES Vitals Vital Signs Date Time Temp Pulse Resp B/P (MAP) Pulse Ox O2 Delivery O2 Flow Rate FiO2 10/17/17 06:30 89 Nasal Cannula 6.0 10/17/17 03:09 72 18 97/52 (67) 10/16/17 23:54 98.3 98.3 General: Alert, No acute distress Lungs: Other Cardiovascular: S1 Abdomen: Soft Extremities: No Edema Labs Laboratory Tests Test 10/16/17 02:15 10/16/17 02:30 10/16/17 02:52 10/16/17 07:55 White Blood Count 14.9 x10^3/uL (4.0-11.0) Red Blood Count 2.95 x10^6/uL (3.50-5.40) Hemoglobin 9.8 g/dL (12.0-15.5) Hematocrit 29.6 % (36.0-47.0) Mean Corpuscular Volume 101 fL (79-100) Mean Corpuscular Hemoglobin 33 pg (25-35) Mean Corpuscular Hemoglobin Concent 33 g/dL (31-37) Red Cell Distribution Width 14.4 % (11.5-14.5) Platelet Count 511 x10^3/uL (140-400) Neutrophils (%) (Auto) 68 % (31-73) Lymphocytes (%) (Auto) 23 % (24-48) Monocytes (%) (Auto) 6 % (0-9) Eosinophils (%) (Auto) 2 % (0-3) Basophils (%) (Auto) 1 % (0-3) Neutrophils # (Auto) 10.1 x10^3uL (1.8-7.7) Lymphocytes # (Auto) 3.4 x10^3/uL (1.0-4.8) Monocytes # (Auto) 0.9 x10^3/uL (0.0-1.1) Eosinophils # (Auto) 0.3 x10^3/uL (0.0-0.7) Basophils # (Auto) 0.1 x10^3/uL (0.0-0.2) Sodium Level 134 mmol/L (136-145) Potassium Level 4.9 mmol/L (3.5-5.1) Chloride Level 99 mmol/L (98-107) Carbon Dioxide Level 29 mmol/L (21-32) Anion Gap 6 (6-14) Blood Urea Nitrogen 24 mg/dL (7-20) Creatinine 1.5 mg/dL (0.6-1.0) Estimated GFR (Cockcroft-Gault) 34.3 BUN/Creatinine Ratio 16 (6-20) Glucose Level 154 mg/dL (70-99) Calcium Level 9.5 mg/dL (8.5-10.1) Magnesium Level 2.4 mg/dL (1.8-2.4) Total Bilirubin 0.3 mg/dL (0.2-1.0) Aspartate Amino Transf (AST/SGOT) 19 U/L (15-37) Alanine Aminotransferase (ALT/SGPT) 29 U/L (14-59) Alkaline Phosphatase 137 U/L (46-116) Troponin I Quantitative 0.299 ng/mL (0.000-0.055) 0.268 ng/mL (0.000-0.055) GX-Ezd-T-Type Natriuretic Peptide 19689 pg/mL (0-124) Total Protein 8.2 g/dL (6.4-8.2) Albumin 3.2 g/dL (3.4-5.0) Albumin/Globulin Ratio 0.6 (1.0-1.7) Lactic Acid Level 1.7 mmol/L (0.4-2.0) 0.8 mmol/L (0.4-2.0) O2 Saturation 92 % (92-99) Arterial Blood pH 7.28 (7.35-7.45) Arterial Blood pCO2 at Patient Temp 63 mmHg (35-46) Arterial Blood pO2 at Patient Temp 74 mmHg (65-108) Arterial Blood HCO3 29 mmol/L (21-28) Arterial Blood Base Excess 1 mmol/L (-3-3) FiO2 100.0 Test 10/16/17 08:50 O2 Saturation 97 % (92-99) Arterial Blood pH 7.57 (7.35-7.45) Arterial Blood pCO2 at Patient Temp 25 mmHg (35-46) Arterial Blood pO2 at Patient Temp 77 mmHg (65-108) Arterial Blood HCO3 23 mmol/L (21-28) Arterial Blood Base Excess 1 mmol/L (-3-3) FiO2 40 Medications Active Scripts Medications Dose Route/Sig Max Daily Dose Days Date Category Aspirin 81 Mg Tab.chew 1 Tab PO DAILY 10/16/17 Reported Eliquis (Apixaban) 5 Mg Tablet 5 Mg PO BID 30 10/13/17 Rx Multivitamins (Multivitamin) 1 Each Tablet 1 Each PO DAILY 09/22/17 Reported Lasix (Furosemide) 40 Mg Tablet 40 Mg PO DAILY 09/22/17 Reported Potassium Chloride 20 Meq Tablet.er 20 Meq PO DAILY 09/22/17 Reported Isosorbide Mononitrate Er (Isosorbide Mononitrate) 30 Mg Tab.er.24h 30 Mg PO DAILY 09/22/17 Reported Folic Acid 1 Mg Tablet 1 Mg PO HS 09/22/17 Reported Amlodipine Besylate 5 Mg Tablet 5 Mg PO DAILY 09/22/17 Reported Ipratropium [place] 0.2 Mg/1 Ml Solution 1 Vial NEB BID 09/22/17 Reported Losartan Potassium 50 Mg Tablet 50 Mg PO DAILY 09/22/17 Reported Lamotrigine 100 Mg Tablet 500 Mg PO DAILY 09/22/17 Reported Omeprazole 40 Mg Capsule.dr 40 Mg PO BID 09/22/17 Reported Atorvastatin Calcium 40 Mg Tablet 40 Mg PO HS 09/22/17 Reported Pulmicort (Budesonide) 0.5 Mg/2 Ml Ampul.neb 0.5 Mg IH BID 09/22/17 Reported Impression . IMPRESSION: 1. Orvru-uk-oyxbimu hypoxic and hypercapnic respiratory failure secondary to [id number]-ok-[id number] systolic heart failure and multivessel coronary artery disease. 2. The patient with rosebud 3-vessel coronary artery disease status post recent left circumflex and right coronary artery stenting. She also had a large anterior infarct and as a result, left anterior descending artery was not stented. 3. Underlying chronic obstructive pulmonary disease. 4. Abnormal chest x-ray with diffuse interstitial infiltrates, consistent with worsening pulmonary edema. Plan . 1. Continue to keep her off the BiPAP since clinically she has improved with Lasix. Her blood pressure is stable. Discontinue IV fluids. 2. Follow chest x-ray. 3. Follow Cardiology's recommendations. 4. Continue bronchodilators. 5. Antibiotic can be discontinued from a pulmonary standpoint. 6. Discussed with the patient's family. Discussed with Dr. Frias. SAMMIE GILLIS MD Oct 17, 2017 09:08
--- NOTE | 2017-10-17 12:33 | PDOC3 ---
Discharge Summary [facility] Date of Admission: Oct 16, 2017 Discharge Date: Oct 17, 2017 Admitting Diagnosis acute resp failure with pulmonary edemam, bl pleural effusion acute on chronic hypoxic and hypercapnic resp failure recent NSTMEI status post C 09/23 to the right wrist, 3 vessel disease, s/p 2 stents at RCA AND LCx, PLAn staged PCI for LAD PAFIB with known LBBB, on xarelto Past CVA with expressive aphasia HLP COPD HTN: bl carotid A stenosis, Left >70%, BL endarterectomy Final Diagnosis CONSULTS card pulm Brief Hospital Course Ms. Peters is a 72 old F, with h/o stroke with expressive aphagia, was dced last week for NSTEMI FOR WHICH SHE GOT got 2 stents and LAD still has leasions waiting for staged PCI. CABG CANCled. she was then found bl carotid A stenosis, got endarterectomy. pt later developed pulmonary edema, lasix iv added. SHE Was dced to rehab with eliquis , plavix, lasix 40mg daily. Pt started to feel night sob after dc, daytime ok, cannot sleep flat, has brown sputum , has NC on in rehab, sent back to ER ABG showed hypercapnic resp failure with worsening CXR. lasix given? pt feels better on NC 2L. PT REFUSED BIPAP at night when desat and sob, family eventually decided to make her comfortable, pt early today at 6.45am. Patient History: Patient reports no known family medical history. CONDITION AT DISCHARGE: / Scheduled Amlodipine Besylate (Amlodipine Besylate), 5 MG PO DAILY, (Reported) Apixaban (Eliquis), 5 MG PO BID Aspirin (Aspirin), 1 TAB PO DAILY, (Reported) Atorvastatin Calcium (Atorvastatin Calcium), 40 MG PO HS, (Reported) Budesonide (Pulmicort), 0.5 MG IH BID, (Reported) Folic Acid (Folic Acid), 1 MG PO HS, (Reported) Furosemide (Lasix), 40 MG PO DAILY, (Reported) Ipratropium [place] (Ipratropium [place]), 1 VIAL NEB BID, (Reported) Isosorbide Mononitrate (Isosorbide Mononitrate Er), 30 MG PO DAILY, (Reported) Lamotrigine (Lamotrigine), 500 MG PO DAILY, (Reported) Losartan Potassium (Losartan Potassium), 50 MG PO DAILY, (Reported) Multivitamin (Multivitamins), 1 EACH PO DAILY, (Reported) Omeprazole (Omeprazole), 40 MG PO BID, (Reported) Potassium Chloride (Potassium Chloride), 20 MEQ PO DAILY, (Reported) BRYANT JURADO MD Oct 17, 2017 12:33
== END 2017-10-17 06:50 | disposition expired ==
LOC: ER 02:03 → 2 SOUTH 04:53
PROVIDERS: ADMIT Internal Medicine; ATTEND Internal Medicine
PROC: 5A09357 Assistance with Respiratory Ventilation, Less than 24 Consecutive Hours, Continuous Positive Airway Pressure (ICD-10-PCS; principal; 2017-10-16)
PROC: 5A09357 Assistance with Respiratory Ventilation, Less than 24 Consecutive Hours, Continuous Positive Airway Pressure (ICD-10-PCS; 2017-10-16)
DX: I11.0 Hypertensive heart disease with heart failure (principal); J96.22 Acute and chronic respiratory failure with hypercapnia; I21.4 Non-ST elevation (NSTEMI) myocardial infarction; J18.9 Pneumonia, unspecified organism; J96.21 Acute and chronic respiratory failure with hypoxia; J44.1 Chronic obstructive pulmonary disease with (acute) exacerbation; J44.0 Chronic obstructive pulmonary disease with (acute) lower respiratory infection; N17.9 Acute kidney failure, unspecified; I50.23 Acute on chronic systolic (congestive) heart failure; I48.91 Unspecified atrial fibrillation; E78.00 Pure hypercholesterolemia, unspecified; R56.9 Unspecified convulsions; F32.9 Major depressive disorder, single episode, unspecified; Z82.49 Family history of ischemic heart disease and other diseases of the circulatory system; I44.7 Left bundle-branch block, unspecified; E78.5 Hyperlipidemia, unspecified; I69.320 Aphasia following cerebral infarction; Z95.5 Presence of coronary angioplasty implant and graft; I25.10 Atherosclerotic heart disease of native coronary artery without angina pectoris; I25.2 Old myocardial infarction; Z95.1 Presence of aortocoronary bypass graft; Z53.20 Procedure and treatment not carried out because of patient's decision for unspecified reasons; Z79.82 Long term (current) use of aspirin
CPT/HCPCS: 36415; 36600; 71045; 74018; 76700; 80053; 82805; 83605; 83735; 83880; 84484; 85025; 87040; 93005; 94640; 94660; 96365; 96367; 96375; 96376; J1956; J2060; J2270; J2405; J2930; J3475; J7030; J7050; J7613; J7620; J7626; J7644; 99285-25